=== PATIENT | male | born 1945 | race Caucasian/White ===

== ENCOUNTER 2016-08-14 10:23 | Observation (INO) | payer MEDICARE, BC ==
[2016-08-08 11:54] LABS: HEMATOCRIT 35.5 % (40.0-51.0)
[2016-08-08 12:06] LABS: BUN (BLOOD UREA NITROGEN) 18 MG/DL (6-23); CALCIUM, SERUM 8.6 MG/DL (8.5-10.4); CHLORIDE, SERUM 106 MMOL/L (96-112); CO2 (CARBON DIOXIDE) 31 MMOL/L (24-34); CREATININE 0.95 MG/DL (0.70-1.30); GFR AFRICAN AMERICAN 93 ML/MIN (>=60); GFR NON AFRICAN AMERICAN 80 ML/MIN (>=60); POTASSIUM, SERUM 4.4 MMOL/L (3.5-5.3); SODIUM, SERUM 144 MMOL/L (135-148)
[2016-08-08 12:11] LABS: GLUCOSE, SERUM 81 MG/DL (60-99)
--- NOTE | ~2016-08-14 | OP ---
Record Of Operation [facility] [address] [place]. [address] NAME: NIDHI CORLEY : 45 STATUS : DIS Aimee PAT#: [id number] AGE: 71 ADM/REG DATE : 08/14/16 MR#: [id number] REPORT SERV DATE: 08/17/16 DICTATED BY: PATRICIA MAC DATE: 08/17/16 REPORT STATUS : Draft TRANSCRIBED BY: MODIvet DATE: 08/17/16 DATE OF PROCEDURE: 08/14/2016 PREOPERATIVE DIAGNOSIS: Right ankle osteoarthritis. POSTOPERATIVE DIAGNOSIS: Right ankle osteoarthritis. PROCEDURES: 1. Right ankle arthrodesis with internal fixation with bone autografting. 2. Retrieval of distal tibia bone autograft right. SURGEON: Susanna KentPAry. ANESTHESIA: General local anesthetic. ESTIMATED BLOOD LOSS: Minimal. COMPLICATION: None. INJECTABLES: Approximately 50 mL of a 1:1 mixture of 1% lidocaine plain and 0.5% Marcaine plain. MATERIALS: Include Arthrex fusion plating system with locking/nonlocking screw fixation, distal tibia bone autograft, corticocancellous bone allografting, and also 2-0, 4-0 Vicryl, 4-0 nylon. PROCEDURE IN DETAIL: Under mild sedation, the patient was brought to the operating room and placed on the operating table in a supine position. Following general anesthesia, local anesthesia obtained about the patient's right ankle and lower leg. The right foot, ankle, and lower leg were scrubbed, prepped, and draped in usual aseptic manner. Attention was directed to the procedure. Procedure #1 is right ankle arthrodesis with internal fixation with distal tibia bone autografting. Attention directed to the anterior aspect of the patient's right ankle where a linear incision was made between the anterior tibial tendon and the extensor hallucis longus tendon overlying the distal tibia, tibiotalar joint, and talonavicular joint. The incision was deepened to subcutaneous tissue with care being taken to identify and retract all vital neurovascular structures. All bleeders were cauterized and ligated as necessary. At this time, a linear extensor retinacular incision was made between the anterior tibial tendon and the EHL tendon. Blunt retraction ensued with care being taken to identify and avoid the neurovascular bundle lying beneath the EHL tendon. At this time, a linear capsular incision was made medial to the EHL tendon. All capsular tissues were reflected medially and laterally exposing the right tibiotalar joint. Severe arthritic changes were noted throughout the joint especially centrally and laterally. Loose bodies were identified and were removed. At this time, invasive distraction was placed into the distal tibia and into the talar body and distraction ensued. At this time, utilizing a combination of Record Of Operation [place] [id number] [facility] [place]. [address] NAME: NIDHI CORLEY : 45 STATUS : DIS Aimee PAT#: [id number] AGE: 71 ADM/REG DATE : 08/14/16 MR#: [id number] REPORT SERV DATE: 08/17/16 DICTATED BY: PATRICIA MAC DATE: 08/17/16 REPORT STATUS : Draft TRANSCRIBED BY: CARMELLA DATE: 08/17/16 curette, burring, rongeuring and fenestration with osteotomes, all remaining cartilage was resected with penetration of the subchondral plate. Large cystic changes noted into the distal tibia as well as into the talus. At this time after curetting and visualizing bleeding bone and identifying that all, the subchondral plate was penetrated, grafting ensued. At this time, attention directed to next procedure. Next procedure is retrieval of right distal tibia bone graft. At this time, a window was created into the distal tibia via a sagittal bone saw. At this time, a cortical window was removed and cancellous bone was extracted from the distal tibia. It was placed within the defects from the cystic changes to the distal tibia, distal tibial surface, and the talar dome region. After grafting was removed and placed within the joint itself in the appropriate position, the donor site was then filled with corticocancellous allografting bone chips. At this time, the distraction was removed and the tibiotalar joint was placed in a neutral 90 degree position without varus positioning. At this time, a Steinmann pin was then temporary placed from superior medial across the tibiotalar joint for temporary stabilization, x-rays confirmed excellent positioning. Next, with the Steinmann pin kept in place, at this time fixation was applied utilizing Arthrex ankle fusion plating system. Locking/nonlocking screws were placed into the talar component of the anterior plating system and then the compression screw was applied. The compression screw was placed across the tibiotalar joint. All blunt hole was utilized to allow for compression as well. The plate was then continually fixated with locking screw fixation. Excellent stabilization was noted. The temporary Steinmann pin was removed. Excellent positioning was noted on AP, oblique, and lateral views. Gentle irrigation ensued. Attention directed to closure with the capsular and retinacular structures reapproximated and coapted using 2-0 Vicryl. Subcutaneous tissue was reapproximated and coapted using 4-0 Vicryl. Skin reapproximated using 4-0 nylon in a continuous and interrupted suture technique. A well-padded sterile dressing and well-padded posterior splint was placed about the patient's right foot and ankle. The patient tolerated the procedure and anesthesia well and was transferred to the recovery room. Vital signs were stable. Vascular status was intact to all toes. Following a period of postoperative monitoring, the patient will be transferred to the floor for admission for postoperative pain management. I will follow the patient on floor. Orders were written for strict nonweightbearing. Strict nonweightbearing at all times. Ice and elevation as directed. EVIE/CARMELLA Danielle Mac D.P.M. / [id number] CC: Tani Kent M.D.
[~2016-08-14 10:23] MED LIST: ADVIL PM PO; BUM1 PO; CLARIT10 PO; COMBIVENT RESPIM4 GM INH; COREG3 PO; COZ25 PO; COZAAR100 MG PO; DYMISTA NASAL S23 GM NAS; FERROUS SULF325 M1 PO; FLOMAX4 PO; FLONASE NAS; GLUCOPHXR7 PO; HALF81 PO; KLOR-CON 1010 MEQ PO; LEVAQ250 PO; MAGOX4 PO; MULTIPLE VIT PO; NORCO1 TA1 PO; PRAVACHOL40 MG PO; PROVHFA INH; PROZAC PO; QUALAQUIN PO; SINGULAIR1 PO; V2 PO; ZYRTEC ALLGY10 MG PO; [UNRECOGNIZED DRUG - OTHER] PO; [UNRECOGNIZED DRUG - OTHER] PO
[2016-08-15 05:55] LABS: BASOPHILS 0.3 %; BASOPHILS ABSOLUTE 0.02 10/3/uL (0.0-0.16); EOSINOPHILS 0.7 %; EOSINOPHILS ABSOLUTE 0.04 10/3/uL (0.0-0.53); HEMATOCRIT 34.5 % (40.0-51.0); HEMOGLOBIN 11.6 g/dL (13.6-17.8); IMMATURE GRANULOCYTES 0.2 %; IMMATURE GRANULOCYTES ABSOLUTE 0.01 10/3/uL (0.0-0.11); LYMPHOCYTES 15.8 %; LYMPHOCYTES ABSOLUTE 0.93 10/3/uL (0.67-4.30); MEAN CORPUS HGB CONC 33.6 g/dL (32.0-36.0); MEAN PLATELET VOLUME 11.4 fL (9.2-13.0); MONOCYTES 11.7 %; MONOCYTES ABSOLUTE 0.69 10/3/uL (0.21-1.20); NEUTROPHILS 71.3 %; NEUTROPHILS ABSOLUTE 4.21 10/3/uL (2.02-8.40); PLATELET COUNT 146 10/3/uL (150-400); WHITE BLOOD CELLS 5.9 10/3/uL (4.5-10.5)
[2016-08-15 05:59] LABS: MANUAL DIFF NO %; MEAN CORPUSCULAR VOLUME 92.2 fL (80-100); RED CELL COUNT 3.74 10/6/uL (4.7-6.1)
[2016-08-15 06:13] LABS: A/G RATIO 1.1 (0.7-1.9); ALBUMIN 3.2 G/DL (3.5-5.0); ALKALINE PHOSPHATASE 96 U/L (45-117); BUN (BLOOD UREA NITROGEN) 14 MG/DL (6-23); CALCIUM, SERUM 8.2 MG/DL (8.5-10.4); CHLORIDE, SERUM 104 MMOL/L (96-112); CO2 (CARBON DIOXIDE) 28 MMOL/L (24-34); CREATININE 0.83 MG/DL (0.70-1.30); GFR AFRICAN AMERICAN 103 ML/MIN (>=60); GFR NON AFRICAN AMERICAN 89 ML/MIN (>=60); GLOBULIN 2.9 G/DL (2.5-4.1); GLUCOSE, SERUM 136 MG/DL (60-99); POTASSIUM, SERUM 4.1 MMOL/L (3.5-5.3); SGOT(AST) 15 U/L (5-40); SGPT(ALT) 16 U/L (5-65); SODIUM, SERUM 139 MMOL/L (135-148); TOTAL BILIRUBIN 0.6 MG/DL (0-1.2); TOTAL PROTEIN 6.1 G/DL (6.0-8.5)
[2016-08-15] MEDS ORDERED: PR25 PO (12:35)
[2016-08-15] MEDS ORDERED: ELIQUIS 2.5 MG2.5 MG PO (12:35)
[2016-08-15] MEDS ORDERED: PCET PO (12:36)
== END 2016-08-15 16:14 | disposition home or self-care (01) ==
LOC: SDC 10:23 → 3SO 16:28
PROVIDERS: Podiatrist Foot & Ankle Surgery
PROC: 0SGF04Z Fusion of Right Ankle Joint with Internal Fixation Device, Open Approach (ICD-10-PCS; principal; 2016-08-14 11:45)
DX: M19.071 Primary osteoarthritis, right ankle and foot (principal); E66.9 Obesity, unspecified; E78.00 Pure hypercholesterolemia, unspecified; I10 Essential (primary) hypertension; J44.9 Chronic obstructive pulmonary disease, unspecified; E11.9 Type 2 diabetes mellitus without complications; F41.9 Anxiety disorder, unspecified; Z98.84 Bariatric surgery status; F40.240 Claustrophobia; G43.909 Migraine, unspecified, not intractable, without status migrainosus; Z87.01 Personal history of pneumonia (recurrent); M17.12 Unilateral primary osteoarthritis, left knee; Z87.442 Personal history of urinary calculi; Z68.31 Body mass index [BMI] 31.0-31.9, adult; Z79.82 Long term (current) use of aspirin; Z98.890 Other specified postprocedural states; Z79.84 Long term (current) use of oral hypoglycemic drugs; Z79.899 Other long term (current) drug therapy
CPT/HCPCS: 27870; 76000; 80048; 80053; 82962 ×2; 85014; 85018; 85025; 93005; 96374; 97530; A9270 ×14; C1713 ×7; G0378; G8978; G8979; J0690; J2270; J2405 ×2; J2710; J3010

== ENCOUNTER 2016-09-12 11:31 | Inpatient (IN) | payer MEDICARE, BC ==
--- NOTE | ~2016-09-12 | CN ---
Consultation Report [facility] [address] [place]. [address] NAME: NIDHI CORLEY : 45 STATUS : ADM IN PAT#: [id number] AGE: 71 ADM/REG DATE : 09/12/16 MR#: [id number] REPORT SERV DATE: 09/13/16 DICTATED BY: ELPIDIO SANTANA DATE: 09/13/16 REPORT STATUS : Draft TRANSCRIBED BY: MODIvet DATE: 09/13/16 CARDIOLOGY CONSULTATION DATE OF CONSULTATION: 09/13/2016 REASON FOR CONSULTATION: Abnormal troponin. HISTORY OF PRESENT ILLNESS: Mr. Corley is a 71-year-old male, known to me from the outpatient setting who presented to the ED yesterday afternoon for evaluation of acute-on- chronic dyspnea and was subsequently admitted for further management. His cardiovascular history is notable for valvular heart disease with prior aortic valve replacement with a bioprosthetic valve and mitral valve repair at the same time. He has a cardiomyopathy associated valvular heart disease and nonobstructive CAD without prior bypass. 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 He recently underwent ankle surgery and is nonweightbearing. He is on low-dose Eliquis for DVT prophylaxis. He has been recovering well but yesterday, he felt relatively acute dyspnea. He describes it as a sense of shortness of breath in the center of his chest. He denies any runny nose, watery eyes, or significant cough. He just feels that he is having a hard time catching his breath. He denies any associated chest pain or pressure. He denies any recent subjective fevers, chills, or night sweats. Due to these symptoms, he presented to the ER and was noted to have an elevated D-dimer prompting a chest CT, which demonstrated no PE and no acute pulmonary infiltrate. He did have elevation of his left hemidiaphragm known from his prior surgery and associated atelectasis. He was mildly hypoxemic based on ABG and resting sats. He was admitted to the Hospitalist Service and had an echocardiogram today. He reports feeling modestly improved this morning. He reminds me that he had a similar presentation years ago but this was prior to his valve being replaced. PAST MEDICAL HISTORY: 1. Valvular heart disease. a. Status post bioprosthetic AVR for aortic stenosis. b. Status post mitral valve repair. This was performed by Dr. Ephraim Guardado on 09/08/2015. 2. Cardiomyopathy, non nonischemic. 3. Heart failure with reduced ejection fraction, chronic. 4. Left hemidiaphragm elevation. 5. Nonobstructive CAD. 6. History of prostate cancer. 7. Hypertension. 8. Nephrolithiasis. 9. Hyperlipidemia. 10.History of gastric bypass surgery. Consultation Report [address] [place]. [address] NAME: NIDHI CORLEY : 45 STATUS : ADM IN PAT#: [id number] AGE: 71 ADM/REG DATE : 09/12/16 MR#: [id number] REPORT SERV DATE: 09/13/16 DICTATED BY: ELPIDIO SANTANA DATE: 09/13/16 REPORT STATUS : Draft TRANSCRIBED BY: CARMELLA DATE: 09/13/16 11.Arthritis status post knee and ankle surgery. 12.Borderline diabetes. MEDICATIONS: Home medications include albuterol, apixaban, aspirin, Coreg, Fauzia, magnesium oxide, Glucophage, Pravachol, Flomax, and Spiriva. ALLERGIES: NONE DOCUMENTED. FAMILY HISTORY: Noncontributory. 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 He is a lifelong nonsmoker. He denies alcohol or illicits. REVIEW OF SYSTEMS: Per HPI. Otherwise, negative. PHYSICAL EXAMINATION: VITAL SIGNS: Temperature 97.0, pulse 73, blood pressure 92/56, respiratory rate 16, 98% on 2 L nasal cannula. GENERAL: A well-developed, male, in no apparent distress. HEENT: Sclerae anicteric. Mucous membranes are moist. NECK: Supple. There is no jugular venous distention. CARDIOVASCULAR: Regular S1, S2. Mid systolic murmur present left upper sternal border. No diastolic murmur. PULMONARY: Bronchial breath sounds are present bilaterally with faint expiratory wheezing in the right base. ABDOMEN: Soft, nondistended, and nontender. EXTREMITIES: Warm. There is no edema on the left. The right lower extremity has a plaster cast. LABORATORY DATA: Reviewed and notable for creatinine of 1.19, potassium 4.3, WBC 4.9, hemoglobin 12.2, platelets 129, troponin four values ranging 0.10 to 0.14. BNP 238. D- dimer 1.9. DIAGNOSTIC STUDIES: Chest x-ray demonstrates elevation of left hemidiaphragm with no acute pulmonary infiltrate and findings consistent with prior median sternotomy. Chest CT demonstrates no acute pulmonary infiltrate. No evidence of PE. EKG; sinus rhythm, rate 97. No acute ST-segment abnormalities. Echocardiogram has been performed and is pending. IMPRESSION/RECOMMENDATIONS: 1. Dyspnea, [id number] with mild hypoxemia. 2. History of AVR/mitral valve repair. 3. Cardiomyopathy, heart failure with reduced ejection fraction. 4. Elevated troponin. More suggestive of demand ischemia. 5. History of nonobstructive disease. Consultation Report [place] [id number] [place]. [address] NAME: NIDHI CORLEY : 45 STATUS : ADM IN [facility]#: [id number] AGE: 71 ADM/REG DATE : 09/12/16 MR#: [id number] REPORT SERV DATE: 09/13/16 DICTATED BY: ELPIDIO SANTANA DATE: 09/13/16 REPORT STATUS : Draft TRANSCRIBED BY: CARMELLA DATE: 09/13/16 6. Regarding the patient's dyspnea, this is a chronic issue but acutely worse subjectively and associated with mild hypoxemia. His exam is notable only for mild wheezing suggestive of a component of reactive airway disease. He is not overtly all volume overloaded but in the setting of valvular heart disease and cardiomyopathy, mildly decompensated heart failure is a consideration. Other considerations include seasonal allergies or viral URI. We will await echocardiogram and agree with short course of steroids per the Hospitalist Service. 7. Regarding elevated troponin, this is likely related to demand ischemia rather than acute coronary syndrome. He has a history of nonobstructive CAD and the trend does not suggest acute plaque rupture. I would therefore not treat with heparin and would not pursue an ischemic evaluation at this time. We will follow the patient with you. Thank you for your consultation. ROHITH/CARMELLA Elpidio Santana MD / [id number] CC: MD Tiffany Capps, M.D.
--- NOTE | ~2016-09-12 | DS ---
Discharge Summary [facility] [address] [place]. [address] NAME: NIDHI CORLEY : 45 STATUS : DIS IN PAT#: [id number] AGE: 71 ADM/REG DATE : 09/12/16 MR#: [id number] REPORT SERV DATE: 09/17/16 DICTATED BY: SEFERINO CASTRO DATE: 09/16/16 REPORT STATUS : Draft TRANSCRIBED BY: CARMELLA DATE: 09/16/16 ADMISSION DATE: 09/12/2016 DISCHARGE DATE: 09/16/2016 CONSULTATION: Cardiology, Elpidio Santana MD DISCHARGE DIAGNOSES: 1. Acute mucopurulent bronchitis. 2. Chronic obstructive pulmonary disease exacerbation. 3. History of aortic valve replacement. 4. History of mitral valve replacement. 5. Hypertension. 6. History of prostate cancer. 7. Nonischemic cardiomyopathy. 8. Heart failure with reduced ejection fraction, chronic. 9. Nonobstructive coronary artery disease. 10.Reactive airway disease. 11.Recent ankle fracture, status post ankle surgery repair. HISTORY OF PRESENT ILLNESS: For detailed HPI, please make reference to Dr. Atul Patel dictation on 09/12/2016. HOSPITAL COURSE: This is a 71-year-old gentleman who presented to the hospital with complaints of worsening shortness of breath, also noted to have lower extremity swelling. Of note, prior to presentation, the patient had an ankle fracture, underwent right ankle surgery two weeks prior to presentation. In the ER, given patient's worsening shortness of breath, initial concern was for possible acute PE. CT of the chest was done that shows no evidence of PE. Chest x-ray showed no evidence of pneumonia. However, the patient continued to have significant shortness of breath with wheezing and also cough productive of yellowish sputum. The patient was started on DuoNeb and steroids in addition to broad- spectrum antibiotics. The patient's shortness of breath continued to improve. An assessment of mucopurulent bronchitis was made. Also, during the course of this admission, the patient was noted to have significantly elevated troponin. Cardiology was consulted. It was noted that the patient's elevated troponin is likely due to demand ischemia rather than acute coronary syndrome. The patient is known to have nonobstructive coronary artery disease. The patient's troponin was trended during the course of this admission and continued to trend down. The patient reported no evidence of chest pain. The patient's beta-aiden was continued as recommended by Cardiology. No invasive intervention was pursued during the course of this admission. The patient was continued on Coreg 6.25 mg, continued on pravastatin, aspirin. A repeat transthoracic echocardiogram was done during this admission that shows left ventricular ejection fraction of 55% with normal right ventricular size and function, stable aortic prosthesis and mitral valve repair. From cardiology standpoint, the patient was advised to continue his beta aiden and aspirin and follow up as an outpatient. The patient's significant shortness of breath and wheezing continued to improve with Discharge Summary [place] [id number] [place]. [address] NAME: NIDHI CORLEY : 45 STATUS : DIS IN PAT#: [id number] AGE: 71 ADM/REG DATE : 09/12/16 MR#: [id number] REPORT SERV DATE: 09/17/16 DICTATED BY: SEFERINO CASTRO DATE: 09/16/16 REPORT STATUS : Draft TRANSCRIBED BY: CARMELLA DATE: 09/16/16 steroids, DuoNeb and oral antibiotics. At the time of discharge, the patient's oxygenation was stable. The patient was advised to continue steroid taper and p.o. antibiotics and follow up with primary care physician. Also, at the time of discharge, the patient was advised to continue Eliquis for DVT prophylaxis following ankle fracture surgery and to follow up with orthopedic surgeon as an outpatient. DISCHARGE DISPOSITION: Home. DISCHARGE FOLLOWUP: 1. Follow up with primary care physician as an outpatient. 2. Follow up with orthopedic surgeon as an outpatient. DISCHARGE ACTIVITIES: As tolerated. A total of greater than 30 minutes was used to prepare this patient's discharge, reconcile medication, and advised the patient on discharge plans and followup. IOO/MODL Seferino Castro MD / [id number] CC: MD Tiffany Capps M.D.
--- NOTE | ~2016-09-12 | HP ---
History And Physical [address] [address] NAME: NIDHI CORLEY : 45 STATUS : ADM IN [facility]#: [id number] AGE: 71 ADM/REG DATE : 09/12/16 MR#: [id number] REPORT SERV DATE: 09/13/16 DICTATED BY: BATSHEVA ELENA DATE: 09/12/16 REPORT STATUS : Draft TRANSCRIBED BY: MODIvet DATE: 09/12/16 DATE OF ADMISSION: 09/12/2016 EXAMINING PHYSICIAN: Batsheva Elena M.D. REASON FOR ADMISSION: Shortness of breath. HISTORY OF PRESENT ILLNESS: This is a 71-year-old white male, who has had slowly increasing shortness of breath over the last few days. He has had no increasing swelling of his lower extremities. He did have ankle surgery by Dr. Gatica about two or three weeks ago. Procedure and nature of the surgery is unknown, but the patient has had cast on the right side. He has had no cough, no fever or chills, no sputum production. He has had orthopnea and dyspnea with exertion. He is not on oxygen at home. Oxygen saturation was 90. Arterial blood gas was drawn earlier and on oxygen showed modest, a resting hypoxemia with PAO2 of 77, however, has had normal pH of 7.45 and PCO2 of 35. CTA of the chest showed no evidence of PE, no other changes. Chest x-ray showed no acute abnormality. D-dimer was elevated at 1.91, but the patient is on Eliquis. Home medicines are yet to be identified and the patient could not tell them. He is reluctant to give history. He does complain of shortness of breath. PAST MEDICAL HISTORY: He had CABG with aortic valvular repair in 2016. He has been followed by Dr. Elpidio Santana in the past. He did have aortic stenosis. The chest x-ray shows some post-stenotic aortic dilatation as well. He does have history of BPH, borderline diabetes, hypertension, prostate cancer, history of renal stones with removal in the past, hyperlipidemia, obesity with gastric bypass, and reversal from his left knee, total knee arthroplasty, and history of pneumonia. Hospitalized 04/2015. 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 He has a blood sugar of 183 today. SOCIAL HISTORY: He is . Lives with . They live at [place]. He does not have any cigarette history or alcohol. He uses no illicit drugs. 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 He lives in [facility] and is . Lives with . No cigarettes or alcohol. FAMILY HISTORY: Father had cardiomyopathy of some kind, his brother had prostate cancer, and his sister had breast cancer. Mother of brain cancer. REVIEW OF SYSTEMS: He is very reluctant to speak and very reserved. He has had dyspnea on exertion the last 2 to 3 days with increasing shortness of breath, dyspnea on exertion as well. No swelling in lower extremities. No melena, hematemesis, fits, seizures, convulsions, nausea, vomiting, or diarrhea. History And Physical [address] [address] NAME: NIDHI CORLEY : 45 STATUS : ADM IN [facility]#: [id number] AGE: 71 ADM/REG DATE : 09/12/16 MR#: [id number] REPORT SERV DATE: 09/13/16 DICTATED BY: BATSHEVA ELENA DATE: 09/12/16 REPORT STATUS : Draft TRANSCRIBED BY: CARMELLA DATE: 09/12/16 He has had no hematuria. The remainder of the review of systems is negative. PHYSICAL EXAMINATION: GENERAL: Moderately obese white male in obvious respiratory distress, increased respiratory rate up to 29. HEENT: EOMI. Sclerae clear. Conjunctivae pink. NECK: No bruit without any JVD. CHEST: Clear to A and P. HEART: Regular S1 and S2. There is some murmur along the left sternal border. Systolic 1/6 without gallop. ABDOMEN: Obese, nontender. Bowel sounds positive. Scars are well healed. EXTREMITIES: Have no edema on the left side. He does have the right side and a cast to the mid richardson. LYMPHATICS: There is no adenopathy palpable. SKIN: Without rash, ecchymosis, or bruising. Scars are well healed. RECTAL: Deferred. LABORATORY: D-dimer of 1.94. CTA of the chest negative. Hemoglobin 12.8, hematocrit 35.7, white count of 4.9, platelet count 129. ASSESSMENT: 1. Acute onset dyspnea last 3 to 4 days. I suspect maybe congestive heart failure. Due to his slight mitral regurgitation murmur, he does have a history of mitral repair. The chest x-ray does not show pulmonary vascular congestion. 2. History of aortic valve replacement and mitral valve repair. 3. Hypertension. Blood pressure 142/85. 4. Possible cardiomyopathy. We will check echocardiogram and also to check the integrity of the valves and consult Dr. Santana, who is followed in the past. 5. History of prostate cancer. 6. History of renal stones. 7. Obesity post gastric bypass and reversal. 8. Left knee joint replacement. 9. Elevation of left hemidiaphragm with possible paralysis. 10.Recent right ankle surgery and pulmonary embolism, has been discounted with being on the Eliquis, having negative CTA of the chest and no evidence of deep vein thrombosis. PLAN: Diuresis. Check echo. Consult Cardiology, supply supplemental oxygen. With his nausea and vomiting, I suspect we should check a troponin level as this may be an anginal equivalent. We will check a troponin level stat as well as a BNP. ADDENDUM: Home medications are listed as follows: Albuterol 1 to 2 puffs every four hours as needed for shortness of breath, Eliquis 2.5 mg p.o. b.i.d., aspirin 81 mg p.o. daily, carvedilol 6.25 p.o. b.i.d., Fauzia 180 p.o. daily, magnesium oxide 400 mg p.o. b.i.d., metformin XR 750 mg p.o. b.i.d., pravastatin 40 mg p.o. daily, Flomax 0.4 daily, and Spiriva 1 cap inhaled daily. History And Physical [address] [address] NAME: NIDHI CORLEY : 45 STATUS : ADM IN PAT#: [id number] AGE: 71 ADM/REG DATE : 09/12/16 MR#: [id number] REPORT SERV DATE: 09/13/16 DICTATED BY: BATSHEVA ELENA DATE: 09/12/16 REPORT STATUS : Draft TRANSCRIBED BY: CARMELLA DATE: 09/12/16 Add Solu-Medrol, Brovana, Pulmicort, albuterol, Mucinex, Nitropaste. Pending results of the troponin. ADDITIONAL HISTORY: The patient had said that he had terrible sore throat and cough, started in the afternoon, however, Eliquis is the new medicine to him. He was given Levaquin in the emergency room, sublingual nitroglycerin, and IV Lasix 80 mg. DB/MODL Batsheva Elena M.D. / [id number] CC: MD Tiffany Capps M.D.
[~2016-09-12 11:31] MED LIST changes: +ELIQUIS 2.5 MG2.5 MG PO; +PCET PO; +PR25 PO
[2016-09-12 12:43] LABS: BASOPHILS 0.4 %; BASOPHILS ABSOLUTE 0.02 10/3/uL (0.0-0.16); EOSINOPHILS 1.4 %; EOSINOPHILS ABSOLUTE 0.07 10/3/uL (0.0-0.53); ER CBC TAT 0 Hrs 13 Mins; HEMATOCRIT 35.7 % (40.0-51.0); HEMOGLOBIN 12.2 g/dL (13.6-17.8); IMMATURE GRANULOCYTES 0.2 %; IMMATURE GRANULOCYTES ABSOLUTE 0.01 10/3/uL (0.0-0.11); LYMPHOCYTES 9.6 %; LYMPHOCYTES ABSOLUTE 0.47 10/3/uL (0.67-4.30); MEAN CORPUS HGB CONC 34.2 g/dL (32.0-36.0); MEAN CORPUSCULAR VOLUME 90.6 fL (80-100); MEAN PLATELET VOLUME 11.7 fL (9.2-13.0); MONOCYTES 7.7 %; MONOCYTES ABSOLUTE 0.38 10/3/uL (0.21-1.20); NEUTROPHILS 80.7 %; NEUTROPHILS ABSOLUTE 3.96 10/3/uL (2.02-8.40); PLATELET COUNT 129 10/3/uL (150-400); RBC DISTRIBUTION WIDTH 12.5 % (12.0-16.0); RED CELL COUNT 3.94 10/6/uL (4.7-6.1); WHITE BLOOD CELLS 4.9 10/3/uL (4.5-10.5)
[2016-09-12 12:46] LABS: MANUAL DIFF NO %
[2016-09-12 12:49] LABS: INTERNATIONAL NORMAL RATI 1.2 UNITS (-); PARTIAL THROMBO TIME 34.9 SEC (22.5-37.2); PROTIME (NOT ORD) 15.4 SEC (12.0-14.5)
[2016-09-12 12:51] LABS: D-DIMER QUANTITATIVE 1.91 ug/mLFEU (< 0.50)
[2016-09-12 12:52] LABS: ALBUMIN 3.4 G/DL (3.5-5.0); BUN (BLOOD UREA NITROGEN) 16 MG/DL (6-23); CALCIUM, SERUM 8.8 MG/DL (8.5-10.4); CHLORIDE, SERUM 104 MMOL/L (96-112); CO2 (CARBON DIOXIDE) 26 MMOL/L (24-34); CREATININE 1.19 MG/DL (0.70-1.30); GFR AFRICAN AMERICAN 71 ML/MIN (>=60); GFR NON AFRICAN AMERICAN 61 ML/MIN (>=60); GLOBULIN 3.4 G/DL (2.5-4.1); POTASSIUM, SERUM 4.3 MMOL/L (3.5-5.3); SGOT(AST) 15 U/L (5-40); SGPT(ALT) 12 U/L (5-65); SODIUM, SERUM 137 MMOL/L (135-148); TOTAL BILIRUBIN 0.5 MG/DL (0-1.2); TOTAL PROTEIN 6.8 G/DL (6.0-8.5)
[2016-09-12 12:53] LABS: ALKALINE PHOSPHATASE 111 U/L (45-117); GLUCOSE, SERUM 183 MG/DL (60-99); INFLUENZA A SCREEN NEGATIVE (NEGATIVE); INFLUENZA B SCREEN NEGATIVE (NEGATIVE)
[2016-09-12] MEDS ORDERED: ELIQUIS 2.5 MG2.5 MG PO (16:37)
[2016-09-12] MEDS ORDERED: SPIRIVA INH (16:37)
[2016-09-12] MEDS ORDERED: PROAIR HFA INH (16:37)
[2016-09-12] MEDS ORDERED: COREG6 PO (16:37)
[2016-09-12] MEDS ORDERED: ALLEGRA180 PO (16:38)
[2016-09-12] MEDS ORDERED: FLOMAX4 PO (16:38)
[2016-09-12] MEDS ORDERED: PRAVACHOL40 MG PO (16:38)
[2016-09-12] MEDS ORDERED: GLUCOPHXR7 PO (16:38)
[2016-09-12] MEDS ORDERED: MAGOX4 PO (16:38)
[2016-09-12] MEDS ORDERED: ASAB PO (16:38)
[2016-09-12 17:08] LABS: LACTATE 1.9 MMOL/L (0.3-2.4)
[2016-09-12 18:18] LABS: CARBOXYHEMOGLOBIN 1.2 % (0-3); HCO3 (ACTUAL BICARBONATE) 23.6 MEQ/L (23-27); HEMOBLOGIN CONTENT 13.1 G/DL (14-18); INSTRUMENT SERIAL # 8087; METHEMOGLOBIN 0.2 % (0-3); O2 CONTENT 17.4 VOL% (18-24); PCO2 (CO2 TENSION) 35 MMHG (35-45); PO2 (O2 TENSION) 77 MMHG (79-93); pH 7.45 (7.37-7.43)
[2016-09-12 18:19] LABS: ALLENS TEST Pos; OPERATOR ID 14335; SAMPLE Arterial
[2016-09-13] MEDS ORDERED: QUININE SULFATE PO (16:59)
[2016-09-13] MEDS ORDERED: QUALAQUIN PO (17:18)
[2016-09-15 05:27] LABS: BASOPHILS 0 %; EOSINOPHILS 0 %; HEMATOCRIT 35.4 % (40.0-51.0); IMMATURE GRANULOCYTES 0.2 %; IMMATURE GRANULOCYTES ABSOLUTE 0.02 10/3/uL (0.0-0.11); LYMPHOCYTES 6.8 %; LYMPHOCYTES ABSOLUTE 0.61 10/3/uL (0.67-4.30); MEAN CORPUS HGB CONC 33.9 g/dL (32.0-36.0); MEAN CORPUSCULAR HEMOGLOB 30.4 pg (26.0-34.0); MEAN CORPUSCULAR VOLUME 89.6 fL (80-100); MEAN PLATELET VOLUME 12.2 fL (9.2-13.0); MONOCYTES 5.8 %; MONOCYTES ABSOLUTE 0.52 10/3/uL (0.21-1.20); NEUTROPHILS 87.2 %; NEUTROPHILS ABSOLUTE 7.78 10/3/uL (2.02-8.40); PLATELET COUNT 160 10/3/uL (150-400); RBC DISTRIBUTION WIDTH 12.8 % (12.0-16.0); RED CELL COUNT 3.95 10/6/uL (4.7-6.1)
[2016-09-15 05:37] LABS: CALCIUM, SERUM 8.7 MG/DL (8.5-10.4); CHLORIDE, SERUM 99 MMOL/L (96-112); CO2 (CARBON DIOXIDE) 27 MMOL/L (24-34); CREATININE 1.12 MG/DL (0.70-1.30); GFR AFRICAN AMERICAN 76 ML/MIN (>=60); GFR NON AFRICAN AMERICAN 66 ML/MIN (>=60); POTASSIUM, SERUM 4.2 MMOL/L (3.5-5.3); SODIUM, SERUM 136 MMOL/L (135-148)
[2016-09-15 05:41] LABS: BUN (BLOOD UREA NITROGEN) 41 MG/DL (6-23); GLUCOSE, SERUM 134 MG/DL (60-99)
[2016-09-15 05:50] LABS: MANUAL DIFF NO %; WHITE BLOOD CELLS 8.9 10/3/uL (4.5-10.5)
[2016-09-16] MEDS ORDERED: VIBRATAB100 MG PO (09:19)
[2016-09-16] MEDS ORDERED: NEUR100 PO (09:20)
[2016-09-16] MEDS ORDERED: LIPOTRIAD1 CAP PO (09:31)
[2016-09-16] MEDS ORDERED: PRED50B PO (09:33)
[2016-09-16] MEDS ORDERED: P20 PO (09:35)
== END 2016-09-16 10:55 | disposition home or self-care (01) | DRG 191 ==
LOC: ER 11:31 → 5NO 18:19
PROVIDERS: Emergency Medicine; Student in an Organized Health Care Education/Training Program
DX: J44.0 Chronic obstructive pulmonary disease with (acute) lower respiratory infection (principal); I50.22 Chronic systolic (congestive) heart failure; I11.0 Hypertensive heart disease with heart failure; I24.8 Other forms of acute ischemic heart disease; I42.0 Dilated cardiomyopathy; E11.9 Type 2 diabetes mellitus without complications; Z95.2 Presence of prosthetic heart valve; Z85.46 Personal history of malignant neoplasm of prostate; E78.5 Hyperlipidemia, unspecified; Z95.1 Presence of aortocoronary bypass graft; Z96.652 Presence of left artificial knee joint; Z87.442 Personal history of urinary calculi; J20.9 Acute bronchitis, unspecified; J44.1 Chronic obstructive pulmonary disease with (acute) exacerbation; E66.9 Obesity, unspecified; Z68.30 Body mass index [BMI] 30.0-30.9, adult; Z87.01 Personal history of pneumonia (recurrent); Z79.01 Long term (current) use of anticoagulants; Z79.82 Long term (current) use of aspirin; Z79.51 Long term (current) use of inhaled steroids; Z79.84 Long term (current) use of oral hypoglycemic drugs
CPT/HCPCS: 36600; 71010; 71020; 71275; 80048; 80053; 82805; 82962; 83605; 83880; 84484; 85025; 85379; 85610; 85730; 87040; 87070; 87205; 87804; 93005; 93306; 94640; 94667; 96374; 96375; 99285; A9270-GY; J1956; J2405; J2920; J2930; Q9967